=== PATIENT | male | born 1940 | race Caucasian/White ===

== ENCOUNTER 2016-12-17 11:11 | Emergency (ER) | payer MEDICARE, OTHER ==
[~2016-12-17 11:11] MED LIST: ADVIL PO; CONDROITIN PO; GLUCOSAMINE PO; MULTIVITAMI1 PO; PERCOCET1 TA2 PO; PROSTATE SUPPLEMENT PO; TYLENOL PO; VITAMIN D PO; [UNRECOGNIZED DRUG - CODE] TOP
== END 2016-12-17 11:23 | disposition home or self-care (01) ==
LOC: ER 11:11
DX: S63.602A Unspecified sprain of left thumb, initial encounter (principal); I10 Essential (primary) hypertension; Z86.73 Personal history of transient ischemic attack (TIA), and cerebral infarction without residual deficits; Z88.5 Allergy status to narcotic agent; Z79.899 Other long term (current) drug therapy; W10.9XXA Fall (on) (from) unspecified stairs and steps, initial encounter
CPT/HCPCS: 73130-LT; 99284

== ENCOUNTER 2017-02-11 12:58 | Emergency (ER) | payer MEDICARE, OTHER | END 2017-02-11 12:59 | disposition home or self-care (01) | LOC: ER 12:58 | DX: L08.9 Local infection of the skin and subcutaneous tissue, unspecified (principal); I10 Essential (primary) hypertension; Z88.5 Allergy status to narcotic agent; Z79.899 Other long term (current) drug therapy | CPT/HCPCS: 99282 ==